=== PATIENT | female | born 2005 | race Caucasian/White ===

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

== ENCOUNTER 2023-01-18 07:12 | Outpatient (RCR) | payer OTHER, SELFPAY ==
--- NOTE | 2023-01-28 14:00 | BH.SGPN.GN ---
Behaviors/Verbalizations/Mental Status: [] Pt alert and oriented, casually dressed and groomed. Eye contact good. Motor activity appropriate. Speech within normal limits. Affect congruent, mood content, euthymic. Thoughts linear, logical, no signs of hallucinations or delusions. Client Response/Progress/Benefit: []Pt receptive of session, actively engaged throughout. Reports she has not recently had an appointment for outpatient counseling, however does have a scheduled?appointment. Pt is not currently taking any psychiatric medication and therefore does not have an outpatient psychiatrist. Reports use of cleaning, cooking, and puzzles to aid in continued maintenance and mood stability. Pt was attentive throughout the group discussion on the relationship between emotions and behaviors. Pt provided examples of why her emotions have dictated her behaviors in the past and consequences of this. Shared she struggles at times with appropriate emotional expression. Connected with psychoeducation portion reviewing 5 aspects of appropriately managing feelings. Noted wanting to work on the Expressing Feelings aspect and identified plans to stop and ask herself Is this a healthy or unhealthy way to express my emotions? What are the potential costs? before doing something. Pt has completed the aftercare program as of this date and is recommended to continue with individual outpatient counseling for ongoing support, to maintain gains, and promote continued mood stability. Narrative Note: []
--- NOTE | 2023-02-01 15:25 | BH.DS ---
Discharge Summary Demographics Date of Admission:: 12/03/22 Discharge Date: 01/28/23 Presenting Problems at Admission:: Pt discharged from IOP tx and transitioned to IOP aftercare to maintain gains Pt made in IOP and to reinforce healthy coping skills. At admission to IOP aftercare, pt continued to report mild symptoms of depression, anxiety, irritability, and the use of unhealthy coping skills at times. Pt also continued to experience stress with her mother?s medical dx, maladaptive coping urges, and car troubles. Discharge Diagnoses:: 1. Major depressive disorder, recurrent, severe without psychosis. 2. Generalized anxiety disorder. 3. PTSD. 4. Borderline personality disorder Reason for Discharge:: Pt has been able to maintain gains made in IOP tx and prevent decompensation, successfully completing aftercare goals. Pt discharged and will continue with traditional outpatient counseling. Treatment Treatment Progress During Treatment & Response: Pt responded well and made progress in IOP aftercare as evidenced by pt's participation in group discussions and self-report of more consistently applying coping skills than prior to tx admission. Pt's overall DSM-5 scores decreased by 94% from [facility] admission. Based on pt's DSM-5 scores from 01/28/23, pt has been able to maintain gains made in IOP tx for depression and anxiety, though pt self-reports continuing to struggle with consistent use of mood management skills. Pt reports pt has been consistent with outpatient counseling as well. Issues Still to be Addressed:: Would benefit from continued work on distress tolerance and emotion regulation skills. Recommended to continue with counseling to work on trauma, maladaptive coping, depression, anxiety, and overall mood management. Discharge Recommendations/Instructions:: Pt will continue seeing outpatient provider, Janice Sandoval, for individual counseling. Discharge Handout
== END 2023-01-29 06:57 | disposition home or self-care (01) ==
LOC: BHOG 07:12
PROVIDERS: PCP Family Medicine; Referring Provider Psychiatry & Neurology Psychiatry; Visit Provider Psychiatry & Neurology Psychiatry
DX: F33.2 Major depressive disorder, recurrent severe without psychotic features (principal); F41.1 Generalized anxiety disorder; F43.10 Post-traumatic stress disorder, unspecified; F60.3 Borderline personality disorder
CPT/HCPCS: 90853

== ENCOUNTER 2023-06-13 03:09 | Emergency (ER) | payer OTHER, SELFPAY ==
[2023-06-13 03:09] VITALS: BP 120/64; PULSE 79; RESP 16; TEMP 36.2; O2SAT 100; BMI 22.4
--- NOTE | 2023-06-13 03:22 | EX.ED.UPPERE ---
HPI History of Present Illness Chief Complaint: Upper Extremity Injury Informant: patient Narrative Narrative: [id number] female presenting with a left upper back/shoulder girdle pain that has been bothering her for 4 years. It got worse tonight when she stood up, she does not recall any injury to this area recently, she denies any radiation into the left upper extremity, chest, head, or any other symptoms. Hurts worse to move. She thinks it started when she pushed herself up with her left arm 4 years ago and felt a pop in her shoulder that was painful. She then kind of felt it pop back. She went to the ER and was told maybe she dislocated it. She is never had issues with her shoulder joint proper again that she recalls. PFSH [facility] Medical History Borderline personality disorder Generalized anxiety disorder History of trichotillomania Major depressive disorder, recurrent severe without psychotic features PTSD (post-traumatic stress disorder) Home Medications cyclobenzaprine 10 mg tablet 10 mg PO TID PRN Muscle Spasm #20 TABLETS 06/13/23 [Rx Last Taken Unknown] naproxen 500 mg tablet (Naprosyn) 500 mg PO BID PRN pain #14 tabs 06/13/23 [Rx Last Taken Unknown] Allergy/AdvReac Type Severity Reaction Status Date / Time No Known Allergies Allergy Verified 06/13/23 03:12 Surgical History History of wisdom tooth extraction Social History Smoking Status: Never smoker ROS ROS ED Constitutional Constitutional ED: Denies chills or fever(s) Musculoskeletal Musculoskeletal: Reports as per HPI, back pain and neck pain; Denies extremity pain Integumentary Denies Abrasions, rash or wounds Neurologic Neurologic: Denies headache(s), paresthesias or weakness EXAM Physical Exam Const Vital Signs: 06/13/23 03:09 Temperature 97.1 F L Temperature Source Oral Pulse Rate 79 Respiratory Rate 16 Blood Pressure 120/64 Blood Pressure Mean 82 Pulse Ox 100 Oxygen Delivery Method Room Air Positive well nourished and well developed General Appearance ED: well developed and NAD HEENT Reports moist mucous membranes Eyes PERRL and EOMs intact bilaterally Neck full ROM and supple Neck Narrative: Tender left trapezius musculature or at the base of the neck than higher up. No sternocleidomastoid tenderness. No mastoid tenderness. Resp normal respiratory effort Back/Spine normal ROM and normal to inspection Back/Spine Narrative: Tender in the left upper back in the area of the rhomboids, cervical portion of the trapezius, and medial portion of the scapula but no spine tenderness, no scapular spine tenderness, and no tenderness in the shoulder joint. No rash. Normal inspection. Extremity normal to inspection and full ROM Neuro oriented x3, no focal motor deficits and no sensory deficits noted Sensorium / Orientation: alert Psych mental status grossly normal and thought process normal Skin no wounds Rashes: no rashes MDM MDM MDM Narrative Medical decision making narrative: This seems all muscular. No emergent radiography indicated. Since she has had pain for 4 years and suggests a motion that may have been a shoulder subluxation, certainly does not sound like at this location, I will refer to orthopedics to see if they think MR would be indicated. It certainly is not emergently, but for now we will treat her with a shot of Toradol and Norflex and prescribe her a muscle relaxer to use as needed along w/ Naprosyn. Also discussed other measures of supportive care such as massage therapy, stretches of the affected muscles and tendons, heat, ice, and [id number] medications. Discharge Plan Triage Chief Complaint: Upper Extremity Injury ED Provider: Arnold Manzano Dx/Rx/DC Orders Clinical Impression: Upper back pain on left side Instructions: Head Tilt, ED Thoracic Spine Strain Prescriptions: New cyclobenzaprine [cyclobenzaprine] 10 mg tablet 10 mg PO TID PRN (Reason: Muscle Spasm) Qty: 20 0RF naproxen [Naprosyn] 500 mg tablet 500 mg PO BID PRN (Reason: pain) Qty: 14 0RF Primary Care Provider: Wisam Burch Referrals: Keven Montano MD [Med Staff - Active Staff] - Disposition Disposition: Home, Self Care
[2023-06-13] MEDS: Ketorolac 30 MG/ML Syringe IM (03:31)
[2023-06-13] MEDS: Orphenadrine 60 MG/2 ML Ampul IM (03:36)
[2023-06-13 03:46] VITALS: BP 123/77; PULSE 66; RESP 16; TEMP 36.1; O2SAT 99
== END 2023-06-13 03:47 | disposition home or self-care (01) ==
LOC: ED 03:42
PROVIDERS: Emergency Provider Emergency Medicine; PCP Family Medicine; Visit Provider Emergency Medicine
DX: M54.9 Dorsalgia, unspecified (principal)
CPT/HCPCS: 96372; 99283

== ENCOUNTER → 2023-10-22 | Outpatient (CLI) | payer OTHER, SELFPAY ==
[2023-10-22 16:34] LABS: Anion Gap 7 (5-15); BUN 13 mg/dL (7-18); BUN/Creat Ratio 16.9 RATIO (10-20); Calcium,Total 8.9 mg/dL (8.5-10.1); Chloride 108 mmol/L (98-107); Cholesterol 362 mg/dL (200); Creatinine, Serum 0.77 mg/dL (0.55-1.02); EST Glomerular Filtration Rate 102 mL/min (>60); Est Glom Filt Rate - Afr Amer 123 mL/min (>60); Glucose 85 mg/dL (74-106); High Density Lipoprotein 50 mg/dL; Potassium 3.5 mmol/L (3.5-5.1); Sodium Level 137 mmol/L (136-145); Triglycerides 83 mg/dL; Very Low Density Lipoprotein 17 mg/dL (5-40)
== END | disposition home or self-care (01) ==
LOC: MFPLAB 11:54
PROVIDERS: PCP Family Medicine; Visit Provider Family Medicine
DX: Z00.00 Encounter for general adult medical examination without abnormal findings (principal)
CPT/HCPCS: 36415; 80048; 80061

== ENCOUNTER → 2023-12-21 | Outpatient (CLI) | payer OTHER, SELFPAY ==
[2023-12-21 19:01] LABS: Internal QC Validated? YES +Cl - CLEAR BKGD; Pregnancy, Serum, hCG Quali. NEGATIVE Negative; Record Kit Lot#, Serum Preg. 735774
== END | disposition home or self-care (01) ==
LOC: LAB 18:24
PROVIDERS: PCP Family Medicine; Referring Provider Family Medicine; Visit Provider Family Medicine
DX: N93.8 Other specified abnormal uterine and vaginal bleeding (principal)
CPT/HCPCS: 84703